=== PATIENT | female | born 1990 | race African-American/Black ===

== ENCOUNTER 2017-01-09 22:04 | Emergency (ER) | payer MEDICAID ==
[~2017-01-09] VITALS: Ht 170.2 cm; Wt 103.0 kg
[2017-01-09] MEDS ORDERED: SODIUM CHLORIDE 0.9% 1,000 ML IV ONE (23:40)
[2017-01-10 00:07] LABS: BASOPHILS % 1.2 % (0.0-2.0); EOSINOPHILS % 0.9 % (0.0-5.0); HEMATOCRIT. 34.8 % (36.0-48.0); HEMOGLOBIN. 11.8 g/dL (12.0-16.0); LYMPHOCYTES % 40.1 % (20.0-50.0); MEAN CORPUSCULAR HEMOGLOBIN 29.6 pg (28.0-32.0); MEAN CORPUSCULAR VOLUME 87.7 fL (81.0-99.0); MEAN PLATELET VOLUME 6.6 fl (7.4-10.4); MONOCYTES % 5.9 % (2.0-8.0); NEUTROPHILS % 51.9 % (40.0-76.0); PLATELET 329 x1000/uL (130-400); RED BLOOD CELL COUNT 3.97 mill/uL (4.2-5.4); RED CELL DISTRIBUTION WIDTH 14.5 % (11.6-14.6)
[2017-01-10 00:13] LABS: CHLORIDE 107 mEq/L (98-107)
[2017-01-10 00:21] LABS: CARBON DIOXIDE 26 mEq/L (21-32); PHENYTOIN 10.4 ug/mL (10-20)
[2017-01-10] MEDS ORDERED: PHENYTOIN SODIUM EXTENDED 100MG CAPSULE PO ONE (00:30)
[2017-01-10 01:17] VITALS: BP 127/72
== END 2017-01-10 02:05 | disposition home or self-care (01) ==
LOC: ER 22:04
DX: G40.909 Epilepsy, unspecified, not intractable, without status epilepticus (principal); Z88.8 Allergy status to other drugs, medicaments and biological substances
CPT/HCPCS: 36415; 80053; 80185; 85025; 96360; 96361; 99285; Z7610; J7030

== ENCOUNTER 2017-01-11 20:04 | Emergency (ER) | payer MEDICAID ==
[~2017-01-11] VITALS: Ht 170.2 cm; Wt 103.2 kg
[2017-01-11 21:38] LABS: CLARITY URINE CLEAR (CLEAR); COLOR URINE YELLOW (YELLOW); GLUCOSE URINE NEGATIVE (NEGATIVE); KETONES URINE NEGATIVE (NEGATIVE); LEUKOCYTE ESTERASE URINE NEGATIVE (NEGATIVE); NITRITE URINE NEGATIVE (NEGATIVE); OCCULT BLOOD URINE NEGATIVE (NEGATIVE); PH URINE 5.5 (4.5-8.0); PROTEIN URINE NEGATIVE (NEGATIVE); SPECIFIC GRAVITY URINE 1.019 (1.005-1.030); UROBILINOGEN URINE 0.2 E.U./dL (0.2-1.0)
[2017-01-11 21:46] LABS: BASOPHILS % 0.9 % (0.0-2.0); EOSINOPHILS % 0.5 % (0.0-5.0); HEMATOCRIT. 34.9 % (36.0-48.0); LYMPHOCYTES % 32.1 % (20.0-50.0); MEAN CORPUSCULAR HEMOGLOBIN 30.1 pg (28.0-32.0); MEAN CORPUSCULAR VOLUME 87.3 fL (81.0-99.0); MEAN PLATELET VOLUME 6.8 fl (7.4-10.4); MONOCYTES % 5.2 % (2.0-8.0); NEUTROPHILS % 61.3 % (40.0-76.0); PLATELET 328 x1000/uL (130-400); RED CELL DISTRIBUTION WIDTH 14.6 % (11.6-14.6)
[2017-01-11 21:49] LABS: *AMPHETAMINES SCREEN URINE NEGATIVE (NEGATIVE); *BARBITURATES SCREEN URINE NEGATIVE (NEGATIVE); *BENZODIAZEPINES SCREEN URINE NEGATIVE (NEGATIVE); *COCAINE SCREEN URINE NEGATIVE (NEGATIVE); CANNABINOID URINE SCREEN NEGATIVE (NEGATIVE); METHADONE URINE SCREEN NEGATIVE (NEGATIVE); OPIATES URINE SCREEN NEGATIVE (NEGATIVE); PHENCYCLIDINE URINE SCREEN NEGATIVE (NEGATIVE)
[2017-01-11 21:50] LABS: CHLORIDE 104 mEq/L (98-107)
[2017-01-11 21:51] LABS: HCG SCREEN NEGATIVE
[2017-01-11 21:55] LABS: CARBON DIOXIDE 27 mEq/L (21-32); ETHANOL BLOOD < 10 mg/dL
[2017-01-11 21:57] LABS: PHENYTOIN 14.1 ug/mL (10-20)
[2017-01-12 00:10] VITALS: BP 115/68
== END 2017-01-12 00:16 | disposition home or self-care (01) ==
LOC: ER 20:15
DX: R56.9 Unspecified convulsions (principal); Z88.8 Allergy status to other drugs, medicaments and biological substances
CPT/HCPCS: 36415; 80053; 80185; 80305; 81003; 82962; 84703; 85025; 99284; G0482

== ENCOUNTER 2017-01-29 02:24 | Emergency (ER) | payer MEDICAID ==
[~2017-01-29] VITALS: Ht 170.2 cm; Wt 99.0 kg
[2017-01-29] MEDS ORDERED: SODIUM CHLORIDE 0.9% 1,000 ML IV ONE (03:14)
[2017-01-29] MEDS ORDERED: LORAZEPAM 2MG/ML CPJ IV ONE (03:15)
[2017-01-29] MEDS ORDERED: LEVETIRACETAM 500MG PREMIX 100 ML IV ONE (03:15)
[2017-01-29 04:07] LABS: BASOPHILS % 0.5 % (0.0-2.0); EOSINOPHILS % 0.4 % (0.0-5.0); HEMATOCRIT. 39.4 % (36.0-48.0); HEMOGLOBIN. 13.4 g/dL (12.0-16.0); LYMPHOCYTES % 22.4 % (20.0-50.0); MEAN CORPUSCULAR HEMOGLOBIN 29.7 pg (28.0-32.0); MEAN CORPUSCULAR VOLUME 87.4 fL (81.0-99.0); MEAN PLATELET VOLUME 6.9 fl (7.4-10.4); MONOCYTES % 5.2 % (2.0-8.0); NEUTROPHILS % 71.5 % (40.0-76.0); PLATELET 360 x1000/uL (130-400); RED BLOOD CELL COUNT 4.51 mill/uL (4.2-5.4); RED CELL DISTRIBUTION WIDTH 15.6 % (11.6-14.6)
[2017-01-29 04:17] LABS: AMMONIA 36 uMol/L (<32)
[2017-01-29 04:28] LABS: CARBON DIOXIDE 23 mEq/L (21-32); CHLORIDE 105 mEq/L (98-107); ETHANOL BLOOD < 10 mg/dL; PHENYTOIN 4.1 ug/mL (10-20)
[2017-01-29 04:30] LABS: CARBAMAZEPINE < 0.5 ug/mL (4-12); PHENOBARBITAL < 2.1 ug/mL (15.0-40.0); VALPROIC ACID < 3.0 ug/mL (50-100)
[2017-01-29] MEDS ORDERED: LACTULOSE 20G/30ML UDC PO NR (04:45)
[2017-01-29 06:11] LABS: *AMPHETAMINES SCREEN URINE NEGATIVE (NEGATIVE); *BARBITURATES SCREEN URINE NEGATIVE (NEGATIVE); *BENZODIAZEPINES SCREEN URINE NEGATIVE (NEGATIVE); *COCAINE SCREEN URINE NEGATIVE (NEGATIVE); CANNABINOID URINE SCREEN NEGATIVE (NEGATIVE); METHADONE URINE SCREEN NEGATIVE (NEGATIVE); OPIATES URINE SCREEN NEGATIVE (NEGATIVE); PHENCYCLIDINE URINE SCREEN NEGATIVE (NEGATIVE)
[2017-01-29 07:30] VITALS: BP 133/91
== END 2017-01-29 09:39 | disposition home or self-care (01) ==
LOC: ER 02:24
DX: G40.909 Epilepsy, unspecified, not intractable, without status epilepticus (principal); J45.909 Unspecified asthma, uncomplicated; E72.20 Disorder of urea cycle metabolism, unspecified
CPT/HCPCS: 36415; 70450; 71010; 80053; 80156; 80165; 80184; 80185; 80305; 82140; 83605; 85025; 96361; 96374; 99285; G0482; J2060; Z7610; J7030

== ENCOUNTER 2017-07-30 03:15 | Emergency (ER) | payer MEDICAID ==
[~2017-07-30] VITALS: Ht 170.2 cm; Wt 102.0 kg
[2017-07-30] MEDS ORDERED: SODIUM CHLORIDE 0.9% 1,000 ML IV ONE (04:07)
[2017-07-30] MEDS ORDERED: LORAZEPAM 2MG/ML CPJ IV ONE (04:15)
[2017-07-30 05:02] LABS: CLARITY URINE CLEAR (CLEAR); COLOR URINE YELLOW (YELLOW); KETONES URINE NEGATIVE (NEGATIVE); LEUKOCYTE ESTERASE URINE NEGATIVE (NEGATIVE); NITRITE URINE NEGATIVE (NEGATIVE); OCCULT BLOOD URINE NEGATIVE (NEGATIVE); PROTEIN URINE NEGATIVE (NEGATIVE); SPECIFIC GRAVITY URINE 1.006 (1.005-1.030); UROBILINOGEN URINE 0.2 E.U./dL (0.2-1.0)
[2017-07-30 05:26] LABS: BASOPHILS % 0.6 % (0.0-2.0); EOSINOPHILS % 0.6 % (0.0-5.0); HEMATOCRIT. 36.6 % (36.0-48.0); HEMOGLOBIN. 12.8 g/dL (12.0-16.0); LYMPHOCYTES % 20.2 % (20.0-50.0); MEAN CORPUSCULAR HEMOGLOBIN 30.6 pg (28.0-32.0); MEAN CORPUSCULAR VOLUME 87.7 fL (81.0-99.0); MEAN PLATELET VOLUME 6.6 fl (7.4-10.4); MONOCYTES % 4.6 % (2.0-8.0); PLATELET 370 x1000/uL (130-400); RED BLOOD CELL COUNT 4.17 mill/uL (4.2-5.4); RED CELL DISTRIBUTION WIDTH 15.3 % (11.6-14.6)
[2017-07-30] MEDS ORDERED: LORAZEPAM 2MG/ML CPJ ONE (05:29)
[2017-07-30] MEDS ORDERED: LORAZEPAM 2MG/ML CPJ IV STA (05:33)
[2017-07-30 05:43] LABS: AMMONIA < 25 uMol/L (<32)
[2017-07-30 05:49] LABS: *AMPHETAMINES SCREEN URINE NEGATIVE (NEGATIVE); *BARBITURATES SCREEN URINE NEGATIVE (NEGATIVE); *BENZODIAZEPINES SCREEN URINE NEGATIVE (NEGATIVE); *COCAINE SCREEN URINE NEGATIVE (NEGATIVE); CANNABINOID URINE SCREEN NEGATIVE (NEGATIVE); METHADONE URINE SCREEN NEGATIVE (NEGATIVE); OPIATES URINE SCREEN NEGATIVE (NEGATIVE); PHENCYCLIDINE URINE SCREEN NEGATIVE (NEGATIVE)
[2017-07-30 05:53] LABS: CHLORIDE 104 mEq/L (98-107); CREATINE KINASE 85 IU/L (26-192); ETHANOL BLOOD < 10 mg/dL
[2017-07-30 05:54] LABS: CARBAMAZEPINE 0.8 ug/mL (4-12); PHENOBARBITAL < 2.1 ug/mL (15.0-40.0); VALPROIC ACID < 3.0 ug/mL (50-100)
[2017-07-30 05:56] LABS: PROTHROMBIN TIME 10.2 sec (9.4-11.6)
[2017-07-30] MEDS ORDERED: PHENYTOIN SODIUM EXTENDED 100MG CAPSULE PO NR (06:15)
[2017-07-30 08:01] VITALS: BP 122/66
== END 2017-07-30 08:05 | disposition home or self-care (01) ==
LOC: ER 03:15
DX: O99.351 Diseases of the nervous system complicating pregnancy, first trimester (principal); G40.909 Epilepsy, unspecified, not intractable, without status epilepticus; O99.511 Diseases of the respiratory system complicating pregnancy, first trimester; J45.909 Unspecified asthma, uncomplicated; Z88.8 Allergy status to other drugs, medicaments and biological substances; Z3A.01 Less than 8 weeks gestation of pregnancy
CPT/HCPCS: 36415; 70450; 71045; 80053; 80156; 80165; 80184; 80185; 80305; 81003; 82140; 82550; 83605; 84443; 84702; 85025; 85610; 93005; 96361; 96374; 99285; G0482; J2060; J7030; Z7610

== ENCOUNTER 2017-08-14 20:56 | Emergency (ER) | payer MEDICAID ==
[~2017-08-14] VITALS: Ht 170.2 cm; Wt 100.0 kg
[2017-08-14] MEDS ORDERED: PHENYTOIN SODIUM EXTENDED 100MG CAPSULE PO ONE (22:30)
[2017-08-14] MEDS ORDERED: FOLIC ACID/VITAMIN B COMP W-C TABLET PO SCH (22:30)
[2017-08-14 23:51] LABS: BASOPHILS % 0.7 % (0.0-2.0); EOSINOPHILS % 0.2 % (0.0-5.0); HEMATOCRIT. 37.5 % (36.0-48.0); HEMOGLOBIN. 12.6 g/dL (12.0-16.0); LYMPHOCYTES % 22.7 % (20.0-50.0); MEAN CORPUSCULAR HEMOGLOBIN 29.5 pg (28.0-32.0); MEAN CORPUSCULAR VOLUME 88.1 fL (81.0-99.0); MEAN PLATELET VOLUME 6.4 fl (7.4-10.4); MONOCYTES % 6.4 % (2.0-8.0); PLATELET 406 x1000/uL (130-400); RED BLOOD CELL COUNT 4.26 mill/uL (4.2-5.4); RED CELL DISTRIBUTION WIDTH 15.5 % (11.6-14.6)
[2017-08-14 23:57] LABS: CHLORIDE 103 mEq/L (98-107)
[2017-08-14 23:59] LABS: INR 1.1; PROTHROMBIN TIME 10.9 sec (9.4-11.6)
[2017-08-15 00:16] LABS: CLARITY URINE CLEAR (CLEAR); COLOR URINE YELLOW (YELLOW); KETONES URINE 1+ (NEGATIVE); LEUKOCYTE ESTERASE URINE NEGATIVE (NEGATIVE); NITRITE URINE NEGATIVE (NEGATIVE); OCCULT BLOOD URINE NEGATIVE (NEGATIVE); PH URINE 5.5 (4.5-8.0); PROTEIN URINE NEGATIVE (NEGATIVE); SPECIFIC GRAVITY URINE 1.012 (1.005-1.030); UROBILINOGEN URINE 0.2 E.U./dL (0.2-1.0)
[2017-08-15 00:29] LABS: B-HCG QUANTITATIVE 39830 mIU/mL (<3)
[2017-08-15 01:53] VITALS: BP 128/66
== END 2017-08-15 02:04 | disposition home or self-care (01) ==
LOC: ER 21:44 → CANBEDREQ 08-15 07:38
DX: O26.891 Other specified pregnancy related conditions, first trimester (principal); G40.909 Epilepsy, unspecified, not intractable, without status epilepticus; Z3A.09 9 weeks gestation of pregnancy; Z88.8 Allergy status to other drugs, medicaments and biological substances
CPT/HCPCS: 36415; 76801; 80053; 81003; 84702; 85025; 85610; 93005; 99285

== ENCOUNTER 2017-12-15 22:26 | Inpatient (IN) | payer MEDICAID ==
[~2017-12-15] VITALS: Ht 167.6 cm; Wt 89.8 kg
[2017-12-15] MEDS ORDERED: SODIUM CHLORIDE 0.9% 1,000 ML IV ONE (22:54)
[2017-12-15] MEDS ORDERED: ONDANSETRON HCL 4MG/2ML VIAL IV STA (22:54)
[2017-12-15] MEDS ORDERED: LORAZEPAM 2MG/ML CPJ IV ONE (23:00)
[2017-12-15 23:23] LABS: BASOPHILS % 0.5 % (0.0-2.0); EOSINOPHILS % 0.4 % (0.0-5.0); HEMATOCRIT. 36.6 % (36.0-48.0); HEMOGLOBIN. 12.4 g/dL (12.0-16.0); LYMPHOCYTES % 15.1 % (20.0-50.0); MEAN CORPUSCULAR HEMOGLOBIN 30.6 pg (28.0-32.0); MEAN CORPUSCULAR VOLUME 90.1 fL (81.0-99.0); MEAN PLATELET VOLUME 7.1 fl (7.4-10.4); MONOCYTES % 4.1 % (2.0-8.0); NEUTROPHILS % 79.9 % (40.0-76.0); PLATELET 359 x1000/uL (130-400); RED BLOOD CELL COUNT 4.07 mill/uL (4.2-5.4); RED CELL DISTRIBUTION WIDTH 15.2 % (11.6-14.6)
[2017-12-15 23:30] LABS: CHLORIDE 106 mEq/L (98-107)
[2017-12-15 23:34] LABS: ETHANOL BLOOD < 10 mg/dL
[2017-12-16] VITALS (7 sets, daily range): BP systolic 109–136; BP diastolic 50–83
[2017-12-16] MEDS ORDERED: LORAZEPAM 2MG/ML CPJ ONE (00:12)
[2017-12-16] MEDS ORDERED: LORAZEPAM 2MG/ML CPJ IV ONE (00:15)
[2017-12-16] MEDS ORDERED: PHENYTOIN SODIUM 500 MG in SODIUM CHLORIDE 0.9% 50 ML IV ONE (00:15)
[2017-12-16] MEDS ORDERED: SODIUM CHLORIDE 0.9% 1,000 ML IV SCH (00:19)
[2017-12-16] MEDS ORDERED: LORAZEPAM 2MG/ML CPJ IV PRN (03:45)
[2017-12-16] MEDS ORDERED: PHEN100C4 PO (04:16)
[2017-12-16] MEDS ORDERED: FOLI-43 PO (04:18)
[2017-12-16] MEDS ORDERED: PREN1TAB33 PO (04:22)
[2017-12-16] MEDS ORDERED: FERR325T6 PO (04:22)
[2017-12-16] MEDS ORDERED: HYDR-2412 PO (04:22)
[2017-12-16] MEDS ORDERED: DOXY1TAB3 PO (04:25)
[2017-12-16] MEDS: DEXT 5%/0.45% NACL 1000ML 1,000 ML IV SCH ×2 (05:25→17:07)
[2017-12-16 07:41] LABS: HEMATOCRIT. 30.8 % (36.0-48.0); HEMOGLOBIN. 10.5 g/dL (12.0-16.0); MEAN CORPUSCULAR HEMOGLOBIN 30.6 pg (28.0-32.0); MEAN CORPUSCULAR VOLUME 90.1 fL (81.0-99.0); PLATELET 298 x1000/uL (130-400); RED BLOOD CELL COUNT 3.42 mill/uL (4.2-5.4)
[2017-12-16 08:15] LABS: CHLORIDE 109 mEq/L (98-107)
[2017-12-16] MEDS ORDERED: PHENYTOIN SODIUM EXTENDED 100MG CAPSULE PO SCH (09:00)
[2017-12-16 11:45] LABS: PLATELET ESTIMATE NORMAL
[2017-12-16] MEDS: PHENYTOIN SODIUM EXTENDED 100MG CAPSULE PO SCH ×2 (14:40→21:03)
[2017-12-16] MEDS: FOLIC ACID 1MG TABLET PO SCH (21:05)
[2017-12-16] MEDS ORDERED: PHENYTOIN SODIUM 800 MG in SODIUM CHLORIDE 0.9% 100 ML IV NR (22:00)
[2017-12-17] VITALS: BP 134/86
[2017-12-17 04:00] VITALS: BP 131/81
[2017-12-17] MEDS: PHENYTOIN SODIUM EXTENDED 100MG CAPSULE PO SCH (06:05)
[2017-12-17 08:00] VITALS: BP 115/75
[2017-12-17] MEDS: DEXT 5%/0.45% NACL 1000ML 1,000 ML IV SCH (08:13)
[2017-12-17] MEDS: FOLIC ACID 1MG TABLET PO SCH (08:13)
[2017-12-17 11:34] VITALS: BP 121/77
[2017-12-17 12:00] VITALS: BP 121/77
== END 2017-12-17 12:30 | disposition short-term general hospital (02) | DRG 566 ==
LOC: ER 22:26 → 6WST 12-16 00:20 → EDBEDREQ 12-16 00:22 → ENRESERV 12-16 02:27
PROVIDERS: ADMIT Hospitalist; ATTEND Hospitalist
DX: O99.352 Diseases of the nervous system complicating pregnancy, second trimester (principal); G40.901 Epilepsy, unspecified, not intractable, with status epilepticus; D64.9 Anemia, unspecified; Z3A.26 26 weeks gestation of pregnancy; O99.012 Anemia complicating pregnancy, second trimester; Z91.14 Patient's other noncompliance with medication regimen; Z88.8 Allergy status to other drugs, medicaments and biological substances
CPT/HCPCS: 36415; 70551; 76805; 80053; 80185; 85007; 85025; 85027; G0482; J1165; J2060; J2405; J3490; J7030; J7050